=== PATIENT | female | born 1985 | race Caucasian/White ===

== ENCOUNTER → 2022-11-25 12:05 | Outpatient (CLI) | payer BC, SELFPAY ==
[2022-11-25 12:38] LABS: Basophils % 0.4 % (0.1-2.0); Eosinophils # 0.1 K/mm3 (0.0-0.4); Eosinophils % 1.7 % (0.1-12.0); Hematocrit 41.3 % (37.0-47.0); Hemoglobin 14.1 g/dL (12.2-16.2); Lymphocytes # 1.9 K/mm3 (0.7-4.5); Lymphocytes % 26.3 % (10-50); Mean Corpuscular HGB Conc 34.2 g/dL (31.8-35.4); Mean Corpuscular Hemoglobin 30.4 pg (27.0-31.2); Mean Corpuscular Volume 89.1 fl (81-99); Mean Platelet Volume 7.9 fl (7.4-10.4); Monocytes # 0.3 K/mm3 (0.1-1.0); Monocytes % 4.6 % (1.7-9.3); Neutrophils # 4.9 K/mm3 (1.8-7.8); Neutrophils % 66.9 % (37.0-80.0); Platelet Count 313 K/mm3 (142-424); Red Blood Count 4.64 M/mm3 (4.20-5.40); Red Cell Distribution Width 13.3 % (11.5-17.5); White Blood Count 7.3 K/mm3 (4.8-10.8)
[2022-11-25 12:54] LABS: Chloride 101 mmol/L (98-107)
[2022-11-25 12:55] LABS: Potassium 3.9 mmoL/L (3.5-5.1); Sodium 139 mmol/L (136-145)
[2022-11-25 12:57] LABS: Alanine Aminotransferase 35 U/L (12-78); Alkaline Phosphatase 48 U/L (38-126); Aspartate Amino Transferase 33 U/L (14-36); Bilirubin,Total 0.6 mg/dl (0.2-1.3); Blood Urea Nitrogen 15 mg/dl (7-17); Estimated Glomerular Filt Rate 94 ml/min (>60); GFR (African American) 114 ML/MIN (>60); Iron 121 ug/dL (37-170)
[2022-11-25 12:58] LABS: Albumin Level 4.7 g/dl (3.5-5.0); Albumin/Globulin Ratio 1.9 (1.1-1.8); Anion Gap 14.9 mEq/L (5-15); Calcium 9.1 mg/dl (8.4-10.2); Carbon Dioxide 27 mmol/L (22.0-30.0); Globulin 2.5 g/dL (1.3-3.2); Glucose 78 mg/dl (74-100); Total Protein,Serum 7.2 g/dl (6.3-8.2)
[2022-11-25 13:07] LABS: Total Iron Binding Capacity 316 ug/dL (265-497)
[2022-11-25 13:14] LABS: Free Thyroxine Index 2.2 ug/dL (5.93-13.13); T4 (Thyroxine) 7.6 ug/dl (5.53-11.0); Triiodothryronine (T3) Uptake 29 % (23.5-40.5)
[2022-11-25 13:30] LABS: Hemoglobin A1C 5.3 % (4.0-6.0)
[2022-11-25 13:50] LABS: Vitamin B12 285 pg/mL (239-931)
[2022-11-25 13:57] LABS: Thyroid Stimulating Hormone 0.85 uIU/mL (0.465-4.68)
[2022-11-26 08:17] LABS: Thyroid Peroxidase Antibodies 21 IU/mL (0-34)
[2022-12-02 04:08] LABS: 1,25 Dihydroxy Vitamin D 53 pg/mL (.); 1,25-Dihydroxy, Vitamin D-2 <10 pg/mL (.); 1,25-Dihydroxy, Vitamin D-3 51 pg/mL (.)
== END ==
PROVIDERS: PCP Family Medicine; Visit Provider Nurse Practitioner Psychiatric/Mental Health
DX: Z00.00 Encounter for general adult medical examination without abnormal findings (principal); Z79.899 Other long term (current) drug therapy; R53.83 Other fatigue; F41.0 Panic disorder [episodic paroxysmal anxiety]
CPT/HCPCS: 36415; 80053; 82607; 82652; 83036; 83540; 83550; 84436; 84443; 84479; 85025; 86376

== ENCOUNTER → 2023-05-01 15:14 | Outpatient (CLI) | payer BC, SELFPAY ==
[2023-05-01 15:51] LABS: Amphetamine/Metha Screen,Urine Negative ng/ml (<1000); Barbiturates Screen,Urine Negative ng/ml (<200)
[2023-05-01 15:52] LABS: Benzodiazepines Screen,Urine Negative ng/ml (<200)
[2023-05-01 15:53] LABS: Cannabinoid Screen,Urine Negative ng/ml (<50)
[2023-05-01 15:54] LABS: Methadone Screen,Urine Negative ng/ml (<300)
[2023-05-01 15:56] LABS: Phencyclidine Screen,Urine Negative ng/ml (<25)
[2023-05-01 16:13] LABS: Cocaine Screen,Urine Negative ng/ml (<300)
[2023-05-01 16:15] LABS: Opiate Screen,Urine Negative ng/ml (<300)
== END ==
PROVIDERS: PCP Family Medicine; Visit Provider Nurse Practitioner Psychiatric/Mental Health
DX: Z91.89 Other specified personal risk factors, not elsewhere classified (principal); Z79.899 Other long term (current) drug therapy
CPT/HCPCS: 80305